=== PATIENT | female | born 1955 | race African-American/Black ===

== ENCOUNTER 2017-06-18 13:39 | Outpatient (CLI) | payer MEDICARE | END 2017-06-18 13:40 | disposition home or self-care (01) | LOC: BICMAMMO 13:39 | PROVIDERS: ATTEND Family Medicine | DX: N63.10 Unspecified lump in the right breast, unspecified quadrant (principal) | CPT/HCPCS: 76642; G0206; G0279 ==

== ENCOUNTER 2017-11-05 08:57 | Outpatient (CLI) | payer MEDICARE | END 2017-11-05 08:58 | disposition home or self-care (01) | LOC: BICMAMMO 08:57 | PROVIDERS: ATTEND Family Medicine | DX: Z12.31 Encounter for screening mammogram for malignant neoplasm of breast (principal) | CPT/HCPCS: 77063; 77067 ==

== ENCOUNTER 2017-12-02 09:43 | Outpatient (CLI) | payer MEDICARE | END 2017-12-02 09:44 | disposition home or self-care (01) | LOC: BICULT 09:43 | PROVIDERS: ATTEND Urology | DX: N20.0 Calculus of kidney (principal); Q61.9 Cystic kidney disease, unspecified | CPT/HCPCS: 36415; 76770; 80048; 81001; 87086 ==

== ENCOUNTER 2018-11-11 08:43 | Outpatient (CLI) | payer MEDICARE ==
--- NOTE | 2018-11-11 09:31 | MMO ---
Bilateral MAMMO Bilat Screen [facility]. CLINICAL HISTORY: Patient is 63 years old and is seen for screening. The patient has no family history of breast cancer. The patient has no personal history of cancer. VIEWS: The views performed were: bilateral craniocaudal with tomosynthesis and bilateral mediolateral oblique with tomosynthesis. FILMS COMPARED: The present examination has been compared to prior imaging studies performed at [facility] on 11/14/2015, 10/23/2016, 06/18/2017 and 11/05/2017. MAMMOGRAM FINDINGS: There are scattered fibroglandular densities. There are no suspicious masses, suspicious calcifications, or new areas of architectural distortion. IMPRESSION: THERE IS NO MAMMOGRAPHIC EVIDENCE OF MALIGNANCY. A ROUTINE FOLLOW-UP MAMMOGRAM IN 1 YEAR IS RECOMMENDED. THE RESULTS OF THIS EXAM WERE SENT TO THE PATIENT. ACR BI-RADS Category 1 - Negative MAMMOGRAPHY NOTE: 1. A negative mammogram report should not delay a biopsy if a dominant of clinically suspicious mass is present. 2. Approximately 10% to 15% of breast cancers are not detected by mammography. 3. Adenosis and dense breasts may obscure an underlying neoplasm.
== END 2018-11-11 08:44 | disposition home or self-care (01) ==
LOC: BICMAMMO 08:43
PROVIDERS: ATTEND Family Medicine
DX: Z12.31 Encounter for screening mammogram for malignant neoplasm of breast (principal)
CPT/HCPCS: 77063; 77067

== ENCOUNTER 2019-02-17 13:23 | Outpatient (CLI) | payer MEDICARE ==
--- NOTE | 2019-02-17 15:22 | RAD ---
2 VIEWS CHEST: Date: 02/17/19 COMPARISON: 06/16/11. HISTORY: Cough and wheezing for 4 days. FINDINGS: Two views of the chest show normal sized cardiomediastinal silhouette. There is no evidence of consol idation, mass, or pleural effusion. Degenerative changes are seen in the spine. IMPRESSION: No evidence of acute cardiopulmonary disease. POS: [facility]
== END 2019-02-17 13:24 | disposition home or self-care (01) ==
LOC: BICRAD 13:23
PROVIDERS: ATTEND Family Medicine
DX: R05 Cough (principal)
CPT/HCPCS: 71046

== ENCOUNTER 2019-12-01 07:32 | Outpatient (CLI) | payer MEDICARE ==
--- NOTE | 2019-12-01 08:24 | MMO ---
Bilateral MAMMO Bilat Screen [facility]. CLINICAL HISTORY: Patient is 64 years old and is seen for screening. The patient has no family history of breast cancer. The patient has no personal history of cancer. VIEWS: The views performed were: bilateral craniocaudal with tomosynthesis and bilateral mediolateral oblique with tomosynthesis. FILMS COMPARED: The present examination has been compared to prior imaging studies performed at [facility] on 10/23/2016, 06/18/2017, 11/05/2017 and 11/11/2018. This study has been interpreted with the assistance of computer-aided detection. MAMMOGRAM FINDINGS: There are scattered fibroglandular densities. There are no suspicious masses, suspicious calcifications, or new areas of architectural distortion. IMPRESSION: THERE IS NO MAMMOGRAPHIC EVIDENCE OF MALIGNANCY. A ROUTINE FOLLOW-UP MAMMOGRAM IN 1 YEAR IS RECOMMENDED. THE RESULTS OF THIS EXAM WERE SENT TO THE PATIENT. ACR BI-RADS Category 1 - Negative MAMMOGRAPHY NOTE: 1. A negative mammogram report should not delay a biopsy if a dominant of clinically suspicious mass is present. 2. Approximately 10% to 15% of breast cancers are not detected by mammography. 3. Adenosis and dense breasts may obscure an underlying neoplasm. Reported by: KIMANI GAMEZ MD Electonically Signed: [id number]
== END 2019-12-01 07:33 | disposition home or self-care (01) ==
LOC: BICMAMMO 07:32
PROVIDERS: ATTEND Family Medicine
DX: Z12.31 Encounter for screening mammogram for malignant neoplasm of breast (principal)
CPT/HCPCS: 77063; 77067

== ENCOUNTER 2020-12-02 09:42 | Outpatient (CLI) | payer MEDICARE | END 2020-12-02 09:43 | disposition home or self-care (01) | LOC: BICMAMMO 09:42 | PROVIDERS: ATTEND Family Medicine | DX: Z12.31 Encounter for screening mammogram for malignant neoplasm of breast (principal) | CPT/HCPCS: 77063; 77067 ==

== ENCOUNTER 2021-09-25 07:25 | Outpatient (CLI) | payer MEDICARE | END 2021-09-25 07:26 | disposition home or self-care (01) | LOC: BICCT 07:25 | PROVIDERS: ATTEND Urology | DX: N20.0 Calculus of kidney (principal); R31.29 Other microscopic hematuria; Q61.9 Cystic kidney disease, unspecified; N28.89 Other specified disorders of kidney and ureter; K76.0 Fatty (change of) liver, not elsewhere classified | CPT/HCPCS: 74178 ==

== ENCOUNTER 2021-12-03 08:10 | Outpatient (CLI) | payer MEDICARE | END 2021-12-03 08:11 | disposition home or self-care (01) | LOC: NM 08:10 | PROVIDERS: ATTEND Specialist | DX: E21.3 Hyperparathyroidism, unspecified (principal) | CPT/HCPCS: 78072; A9500 ==

== ENCOUNTER 2021-12-03 12:24 | Outpatient (CLI) | payer MEDICARE | END 2021-12-03 12:25 | disposition home or self-care (01) | LOC: BICMAMMO 12:24 | PROVIDERS: ATTEND Family Medicine | DX: Z12.31 Encounter for screening mammogram for malignant neoplasm of breast (principal) | CPT/HCPCS: 77063; 77067 ==

== ENCOUNTER 2022-01-02 09:38 | Outpatient (CLI) | payer MEDICARE | END 2022-01-02 09:39 | disposition home or self-care (01) | LOC: LABBT 09:38 | PROVIDERS: ATTEND Internal Medicine | DX: K21.9 Gastro-esophageal reflux disease without esophagitis (principal); Z20.822 Contact with and (suspected) exposure to COVID-19; Z86.010 Personal history of colon polyps | CPT/HCPCS: 87811 ==

== ENCOUNTER 2022-01-05 05:43 | Day surgery (SDC) | payer MEDICARE, OTHER ==
[2022-01-01 15:06] VITALS: BMI 42.5
[2022-01-05] MEDS ORDERED: Labetalol HCl 100 MG/20 ML VIAL ONE (07:20)
[2022-01-05] MEDS ORDERED: hydrALAZINE 20 MG/ML VIAL ONE (07:50)
[2022-01-05] MEDS ORDERED: Fentanyl 100 MCG/2 ML VIAL ONE (07:53)
[2022-01-05] MEDS ORDERED: PROPOFOL 200 MG/20 ML VIAL ONE (08:20)
== END 2022-01-05 09:37 | disposition home or self-care (01) ==
LOC: SDC 05:43
PROVIDERS: ATTEND Internal Medicine
PROC: 0DJ08ZZ Inspection of Upper Intestinal Tract, Via Natural or Artificial Opening Endoscopic (ICD-10-PCS; principal; 2022-01-05)
PROC: 0DBN8ZX Excision of Sigmoid Colon, Via Natural or Artificial Opening Endoscopic, Diagnostic (ICD-10-PCS; 2022-01-05)
DX: Z12.11 Encounter for screening for malignant neoplasm of colon (principal); D12.5 Benign neoplasm of sigmoid colon; K64.8 Other hemorrhoids; K21.9 Gastro-esophageal reflux disease without esophagitis; I10 Essential (primary) hypertension; E11.9 Type 2 diabetes mellitus without complications; M19.90 Unspecified osteoarthritis, unspecified site; E66.9 Obesity, unspecified; Z68.41 Body mass index [BMI] 40.0-44.9, adult; Z86.010 Personal history of colon polyps; Z79.84 Long term (current) use of oral hypoglycemic drugs; Z79.899 Other long term (current) drug therapy; Z88.5 Allergy status to narcotic agent
CPT/HCPCS: 88305; J0360; J2704; J3010

== ENCOUNTER 2022-02-02 08:27 | Outpatient (CLI) | payer OTHER | END 2022-02-02 08:28 | disposition home or self-care (01) | LOC: BICRAD 08:27 | PROVIDERS: ATTEND Family Medicine | DX: J40 Bronchitis, not specified as acute or chronic (principal) | CPT/HCPCS: 71046 ==

== ENCOUNTER 2022-03-04 08:37 | Outpatient (CLI) | payer OTHER ==
[2022-03-04] MEDS ORDERED: Iopamidol-370 76% 500 ML 1 ML ONE (14:28)
== END 2022-03-04 08:38 | disposition home or self-care (01) ==
LOC: BICCT 08:37
PROVIDERS: ATTEND Specialist
DX: E21.3 Hyperparathyroidism, unspecified (principal); E04.9 Nontoxic goiter, unspecified; M47.812 Spondylosis without myelopathy or radiculopathy, cervical region
CPT/HCPCS: 70492; 82565; Q9967

== ENCOUNTER 2022-07-28 09:36 | Outpatient (CLI) | payer OTHER | END 2022-07-28 09:37 | disposition home or self-care (01) | LOC: BICRAD 09:36 | PROVIDERS: ATTEND Family Medicine | DX: R05.9 Cough, unspecified (principal) | CPT/HCPCS: 71046 ==

== ENCOUNTER 2022-12-07 07:21 | Emergency (ER) | payer OTHER ==
[2022-12-07 08:07] LABS: #Basophils 0.1 thou/uL (0.0-0.2); #Eosinphils 0.1 thou/uL (0.0-0.7); #Monocytes 0.8 thou/uL (0.11-0.59); #Neutrophils 4.5 thou/uL (1.40-6.50); %Basophils 0.8 % (0.0-1.0); %Eosinophils 1.7 % (0.0-10.0); %Lymphocytes 23.3 % (21.0-51.0); %Monocytes 11.2 % (0.0-10.0); %Neutrophils 62.7 % (42.0-75.0); Hemoglobin 14.9 g/dL (12.0-16.0); Mean Corpuscular Hemoglobin 29.5 pg (27.0-31.0); Mean Corpuscular Volume 89.3 fl (78.0-98.0); Mean Platelet Volume 10.7 fL (7.4-10.4); Platelet Count 260 10x3/uL (130-400); RBC Distribution Width 14.1 % (11.5-14.5); Red Blood Cell (RBC) Count 5.05 mill/uL (4.20-5.40); White Blood Cell (WBC) Count 7.2 10x3/uL (4.8-10.8)
[2022-12-07 08:31] LABS: ALT (SGPT) 20 U/L (8-55); AST (SGOT) 17 U/L (5-34); Albumin 4.4 g/dL (3.4-4.8); Alkaline Phosphatase 110 U/L (40-110); Anion Gap 15 mmol/L (10-20); BUN (Urea Nitrogen) 12 mg/dL (9.8-20.1); Bilirubin, Total 0.4 mg/dL (0.2-1.2); Calc. Creatinine Clearance 0 mL/min (70-130); Calcium 10.6 mg/dL (7.8-10.44); Carbon Dioxide 26 mmol/L (23-31); Chloride 100 mmol/L (98-107); Estimated GFR 89; Globulin 4.2 g/dL (2.4-3.5); Glucose 99 mg/dL (80-115); Lipase 34 U/L (8-78); Protein, Total 8.6 g/dL (5.8-8.1); Sodium 137 mmol/L (136-145)
== END 2022-12-07 09:13 | disposition home or self-care (01) ==
LOC: ERS 07:21
DX: I10 Essential (primary) hypertension (principal); E11.9 Type 2 diabetes mellitus without complications; Z79.899 Other long term (current) drug therapy
CPT/HCPCS: 36415; 71045; 80053; 83690; 84484; 85025; 93005

== ENCOUNTER 2022-12-17 15:01 | Outpatient (CLI) | payer OTHER | END 2022-12-17 15:02 | disposition home or self-care (01) | LOC: BICMAMMO 15:01 | PROVIDERS: ATTEND Family Medicine | DX: Z12.31 Encounter for screening mammogram for malignant neoplasm of breast (principal) | CPT/HCPCS: 77063; 77067 ==

== ENCOUNTER 2023-04-13 07:48 | Outpatient (CLI) | payer OTHER | END 2023-04-13 07:49 | disposition home or self-care (01) | LOC: BICULT 07:48 | PROVIDERS: ATTEND Urology | DX: N20.0 Calculus of kidney (principal); N28.1 Cyst of kidney, acquired; R93.421 Abnormal radiologic findings on diagnostic imaging of right kidney | CPT/HCPCS: 76770 ==

== ENCOUNTER 2023-12-20 08:56 | Outpatient (CLI) | payer OTHER | END 2023-12-20 08:57 | disposition home or self-care (01) | LOC: BICMAMMO 08:56 | PROVIDERS: ATTEND Family Medicine | DX: Z12.31 Encounter for screening mammogram for malignant neoplasm of breast (principal); Z13.820 Encounter for screening for osteoporosis; M25.511 Pain in right shoulder; M77.8 Other enthesopathies, not elsewhere classified; M85.852 Other specified disorders of bone density and structure, left thigh; Z78.0 Asymptomatic menopausal state | CPT/HCPCS: 77063; 77067; 77080 ==

== ENCOUNTER 2024-02-10 09:37 | Emergency (ER) | payer OTHER ==
[2024-02-10] MEDS ORDERED: Dexamethasone 10 MG/ML VIAL ONE (10:25)
[2024-02-10] MEDS ORDERED: Ketorolac Tromethamine 30 MG (1 mL) VIAL ONE (10:25)
[2024-02-10] MEDS ORDERED: Diazepam 10 MG/2 ML SYRINGE ONE (10:27)
== END 2024-02-10 12:10 | disposition home or self-care (01) ==
LOC: ERS 09:37
DX: M54.32 Sciatica, left side (principal); I10 Essential (primary) hypertension; E11.9 Type 2 diabetes mellitus without complications
CPT/HCPCS: 96372; 99282; J1100; J1885; J3360

== ENCOUNTER 2024-03-03 08:50 | Outpatient (CLI) | payer OTHER ==
[2024-03-03] MEDS ORDERED: Iopamidol 370 76% 100 ML VIAL ONE (10:38)
== END 2024-03-03 08:51 | disposition home or self-care (01) ==
LOC: BICCT 08:50
PROVIDERS: ATTEND Urology
DX: N20.0 Calculus of kidney (principal); E34.9 Endocrine disorder, unspecified; N28.1 Cyst of kidney, acquired; R31.29 Other microscopic hematuria; E04.2 Nontoxic multinodular goiter
CPT/HCPCS: 70492; 74178; 82565; Q9967

== ENCOUNTER 2024-12-20 07:49 | Outpatient (CLI) | payer OTHER | END 2024-12-20 07:50 | disposition home or self-care (01) | LOC: BICMAMMO 07:49 | PROVIDERS: ATTEND Nurse Practitioner Family | DX: Z12.31 Encounter for screening mammogram for malignant neoplasm of breast (principal) | CPT/HCPCS: 77063; 77067 ==

== ENCOUNTER 2025-01-10 07:32 | Outpatient (CLI) | payer OTHER | END 2025-01-10 07:33 | disposition home or self-care (01) | LOC: SCSMRI 07:32 | PROVIDERS: ATTEND Family Medicine Sports Medicine | DX: M47.27 Other spondylosis with radiculopathy, lumbosacral region (principal); M48.061 Spinal stenosis, lumbar region without neurogenic claudication; M43.16 Spondylolisthesis, lumbar region; M47.26 Other spondylosis with radiculopathy, lumbar region; M51.16 Intervertebral disc disorders with radiculopathy, lumbar region | CPT/HCPCS: 72148 ==

== ENCOUNTER 2025-03-30 08:10 | Outpatient (CLI) | payer OTHER | END 2025-03-30 08:11 | disposition home or self-care (01) | LOC: NM 08:10 | PROVIDERS: ATTEND Specialist | DX: E21.3 Hyperparathyroidism, unspecified (principal); E04.2 Nontoxic multinodular goiter | CPT/HCPCS: 78072; A9500 ==

== ENCOUNTER 2025-04-11 13:40 | Outpatient (CLI) | payer OTHER | END 2025-04-11 13:41 | disposition home or self-care (01) | LOC: SCSULT 13:40 | PROVIDERS: ATTEND Specialist | DX: E04.1 Nontoxic single thyroid nodule (principal) | CPT/HCPCS: 76536 ==